=== PATIENT | female | born 1960 | race Two or more races ===

== ENCOUNTER 2016-11-26 14:14 | Emergency (ER) | payer OTHER ==
[~2016-11-26] VITALS: Ht 154.9 cm; Wt 93.4 kg
[2016-11-26 14:55] VITALS: BP 115/75
[2016-11-26] MEDS ORDERED: KETOROLAC TROMETH 60MG/2ML VIAL IM ONE (16:00)
== END 2016-11-26 16:05 | disposition home or self-care (01) ==
LOC: ER 14:14
DX: M17.12 Unilateral primary osteoarthritis, left knee (principal); G89.29 Other chronic pain; M19.90 Unspecified osteoarthritis, unspecified site; Z88.8 Allergy status to other drugs, medicaments and biological substances
CPT/HCPCS: 73562; 96372; 99284; J1885